=== PATIENT | male | born 1980 | race Caucasian/White ===

== ENCOUNTER 2019-01-24 18:02 | Emergency (ER) | payer MEDICAID ==
[~2019-01-24] VITALS: Ht 157.5 cm; Wt 75.3 kg
[2019-01-24 18:05] VITALS: BP 134/84
--- NOTE | 2019-01-24 18:15 | NUR ---
PT TRIAGED, SENT BACK TO LOBBY AWAITING FOR BED
[2019-01-24 18:38] LABS: BASOPHILS % (AUTO) 0.2 % (0.0-2.0); EOSINOPHILS % (AUTO) 0.3 % (0.0-4.0); HEMOGLOBIN 15.7 g/dL (12.0-18.0); LYMPHOCYTES # (AUTO) 2.2 K/uL (2.0-11.5); LYMPHOCYTES % (AUTO) 16.4 % (20.5-51.1); MEAN CORPUSCULAR HEMOGLOBIN 29 pg (27-31); MEAN CORPUSCULAR HGB CONC 33 g/dL (33-37); MONOCYTES % (AUTO) 7.4 % (1.7-9.3); NEUTROPHILS # (AUTO) 10.2 K/uL (1.8-7.7); NEUTROPHILS % (AUTO) 75.7 % (42.2-75.2); PLATELET COUNT (AUTO) 212 K/uL (140-450); RED BLOOD CELL COUNT(AUTO) 5.34 MIL/uL (4.20-6.10); RED CELL DISTRIBUTION WIDTH 13.6 % (11.6-13.7); WHITE BLOOD COUNT (AUTO) 13.4 K/uL (4.8-10.8)
--- NOTE | 2019-01-24 18:40 | NUR ---
PT AMBULATED TO BED WITH FAMILY/FRIEND
[2019-01-24 18:43] LABS: APPEARANCE,URINE CLEAR (CLEAR); BILIRUBIN,URINE NEGATIVE (NEGATIVE); BLOOD, URINE NEGATIVE (NEGATIVE); COLOR,URINE YELLOW (YELLOW); LEUKOCYTE ESTERASE ,URINE NEGATIVE (NEGATIVE); NITRITE, URINE NEGATIVE (NEGATIVE); PH,URINE 5.5 (5.0-9.0); UGLUCOSE NEGATIVE (NEGATIVE)
[2019-01-24 18:57] LABS: ALBUMIN 4.1 g/dL (3.4-5.0); ANION GAP 13.7 (8-16); CARBON DIOXIDE 30.7 mmol/L (21-32); POTASSIUM 4.4 mmol/L (3.5-5.1); TOTAL BILIRUBIN 0.6 mg/dL (0.0-1.0)
--- NOTE | 2019-01-24 18:58 | NUR ---
38 Y/O MALE PRESENTING WITH C/C OF LLQ ABD PAIN 10/10 X 3 DAYS, PRESSURE SENSATION. PER PT NO PAINFUL URINATION; LAST BM 3 HOURS AGO. PER PT NKA. NO MEDICAL HX. NO MEDS ON REG BASIS. LAST ORAL INTAKE TODAY, TOLERATED WELL. DENIES N/V/D. SIDE RAIL X1. FAMILY AT BEDSIDE.
--- NOTE | 2019-01-24 19:10 | NUR ---
REPORT GIVEN TO MONIE UREÑA
--- NOTE | 2019-01-24 19:30 | NUR ---
Marilyn bedside evaluating pt
--- NOTE | 2019-01-24 19:30 | NUR ---
PT C/O ABD PAIN LLQ X3 DAYS. PT DENIES N/V/D. PT STATES BURING WHEN URIANTING AND PAIN WHEN HAVING A BM. PT STATES PAIN GETS WORSE WITH MOVEMENT AND PALPATION. PAIN FEELS LIKE A SHARP PAIN. PT DENIES CVA TENDERNESS. DR. GAYTAN AT BEDSIDE ASSESSING PT.
[2019-01-24] MEDS ORDERED: KETOROLAC 60 MG/2 ML VIAL IM ONE (19:35)
--- NOTE | 2019-01-24 19:39 | NUR ---
PT TO CT VIA WHEELCHAIR
--- NOTE | 2019-01-24 19:42 | NUR ---
PT LEFT TO CT
--- NOTE | 2019-01-24 19:59 | NUR ---
PT RETURN FROM CT VIA WHEELCHAIR
--- NOTE | 2019-01-24 19:59 | NUR ---
PT RETURNED FROM CT
[2019-01-24 20:32] VITALS: BP 132/82
--- NOTE | 2019-01-24 20:32 | NUR ---
Patient discharged with v/s stable. Written and verbal after care instructions given and explained. Patient alert, oriented and verbalized understanding of instructions. Ambulatory with steady gait. All questions addressed prior to discharge. ID band removed. Patient advised to follow up with PMD. Rx of FLAGYL, MOTRIN, CIPRO, NOTCO given. Patient educated on indication of medication including possible reaction and side effects. Opportunity to ask questions provided and answered.ALLOWED TIME TO ASK QUESTIONS. ALL QUESTIONS ANSWERED.
== END 2019-01-24 20:32 | disposition home or self-care (01) ==
LOC: MED 18:02
DX: K57.92 Diverticulitis of intestine, part unspecified, without perforation or abscess without bleeding (principal)
CPT/HCPCS: 36415; 74176; 80053; 81003; 83690; 85025; 96372; 99284; J1885